=== PATIENT | female | born 1955 | race Caucasian/White ===

== ENCOUNTER 2017-04-19 15:18 | Inpatient (IN) | payer SELFPAY ==
[2017-04-19] MEDS ORDERED: IPRATROPIUM/ALBUTEROL SULFATE 3 ML AMPUL.NEB NEB ONE ×2 (15:33→16:24)
--- NOTE | 2017-04-19 15:40 | ED Physician Documentation ---
Dyspnea - HISTORIAN Historian: patient - HPI Chief Complaint: Dyspnea Additional Information: Danni states that she had a respiratory illness, fever/chill, achy all over. Started feel better 2 days ago. This AM developed a cough fo yellow phlegm, no blood. Feels that she might be running a fever again. Lung aches, no chest pain. Has had some nausea. Has end stage COPD. Is asmanex, combivent, Proair, nebulizer, is not on oxygen at home. Not smoking but is around second hand smoke. Severity: moderate - ROS CONST: weakness - PAST HX Lung Disease: COPD Cardiac Disease: other (chronic tachycardia) PE Risk Factors: none Surgeries/Procedures: other (breast lump removed) Allergies/Adverse Reactions: Allergies Allergy/AdvReac Type Severity Reaction Status Date / Time No Known Allergies Allergy Verified 04/19/17 16:17 Home Medications: Ambulatory Orders Medication Instructions Recorded Albuterol Sulfate [ProAir 1 puff IN DAILY 04/19/17 RespiClick] Azithromycin [Zithromax] 250 mg PO DIRECTED #6 tablet 04/19/17 Ipratropium [place] [Ipratropium 1 puff IN Q6 04/19/17 [place]] Ipratropium/Albuterol Sulfate 3 ml IN Q6 04/19/17 [Duoneb] Mometasone Furoate [Asmanex] 1 puff IN DAILY 04/19/17 Prednisone 30 mg PO D #9 tablet 04/19/17 - SOCIAL HX Smoking History: non-smoker, quit greater than 1 year Alcohol Use: none Drug Use: none - FAMILY HX Family History: no significant history - VITAL SIGNS Vital Signs: Vital Signs Temp Pulse Resp BP Pulse Ox 112/68 07/27/13 21:54 - REVIEWED ASSESSMENTS Nursing Assessment Reviewed: Yes Vitals Reviewed: Yes Progress - Progress Progress: 16:14 Patient states that her breathing seems improved, still wheezing some but can move air some better. 17:36 Took patient off oxygen and she desat down to 85%. ED Results Lab/Radiology - Radiology Radiology Impressions: Examination: PA and lateral chest. History: Evaluate lung park. Comparison exam: None provided Findings: PA lateral chest demonstrate a normal cardiac and mediastinal silhouette. Lungs hyperinflated with flattening of the diaphragms. Vascular calcifications involving the aortic arch. No focal infiltrate. No blunting of the costophrenic margins. Osseous structures are appropriate for age. Impression: Hyperinflated lungs. No acute appearing pulmonary process. - Orders Orders: ED Orders Category Date Time Status Ipratropium/Albuterol Sulfate [Duoneb] Med 04/19/17 15:33 Once 3 ml NEB NOW ONE Dyspnea Physical Exam - EXAM General Appearance: alert, moderate distress EENT: eye inspection normal, ENT inspection normal, pharynx normal, no signs of dehydration Neck: nml inspection. No: meningismus, lymphadenopathy Respiratory: speaks full sentences, respiratory distress (mild to moderate), prolonged expirations (mild), wheezes (bilateral expiratory), rales (few on the right side), no pleuritic chest pain. No: accessory muscle use, chest wall tenderness CVS: reg. rate & rhythm, no murmur, no gallop, pulses full, pulses equal Abdomen: non-tender, no organomegaly, no distention, no ascites Skin: color nml, no rash Extremities: non-tender, normal range of motion. No: edema, tenderness Neuro/Psych: oriented x3, mood/affect nml Discharge Clincal Impression: Acute bronchitis with COPD, Sinus tachycardia Prescriptions: Azithromycin [Zithromax] 250 mg PO DIRECTED #6 tablet Prednisone 30 mg PO D #9 tablet Referrals: Primary Doctor,No [Primary Care Provider] - 2 Days Additional Instructions: Drink a lot of fluids. Continue taking your nebulized treatments or Proair every four hours until symptoms improve. Take prednisone as directed. If your symptoms get worse to return to the ED or see your primary care provider. Condition: Stable Disposition: 01 HOME, SELF-CARE Decision to Admit: NO Date of Decison to Admit: 04/19/17 Decision Time: 17:07
[2017-04-19] MEDS: 0.9 % SODIUM CHLORIDE 1,000 ML IV SCH ×2 (16:00→20:00)
[2017-04-19] MEDS ORDERED: 0.9 % SODIUM CHLORIDE 1,000 ML IV ONE ×2 (16:08→19:54)
[2017-04-19 16:11] LABS: MEAN CORPUSCULAR HEMOGLOBIN 32.5 pg (28.0-34.0); MEAN CORPUSCULAR VOLUME 95.8 fl (80.0-100.0)
[2017-04-19 16:20] LABS: eGFR (African) > 60; eGFR (Non-African) > 60
[2017-04-19] MEDS ORDERED: methylPREDNISolone SOD SUCC 125 MG/2 ML VIAL ONE (16:23)
[2017-04-19] MEDS ORDERED: methylPREDNISolone SOD SUCC 125 MG/2 ML VIAL IVP ONE (16:24)
[2017-04-19 16:45] LABS: EOSINOPHILS % 2 % (0-7); MONOCYTES % 7 % (0-11); SEGMENTED NEUTROPHILS % 82 % (39-79)
[2017-04-19] MEDS ORDERED: ONDANSETRON HCL/PF 4 MG/ 2ML VIAL IVP ONE (16:50)
--- NOTE | 2017-04-19 16:52 | Diagnostic Imaging Report ---
[facility] [address] [facility].[address] [id number] Report Submission Date: Apr 19, 2017 4:31:07 PM AUTHORIZATION SPECIALIST Patient Study Name: JANETTE MOORE Date: Apr 19, 2017 3:59:14 PM AUTHORIZATION SPECIALIST Modality Type: CR Gender: M Description: CHEST : 59 Institution: [facility] Physician: CONNIE ROLAND Examination: PA and lateral chest. History: Evaluate lung park. Comparison exam: None provided Findings: PA lateral chest demonstrate a normal cardiac and mediastinal silhouette. Lungs hyperinflated with flattening of the diaphragms. Vascular calcifications involving the aortic arch. No focal infiltrate. No blunting of the costophrenic margins. Osseous structures are appropriate for age. Impression: Hyperinflated lungs. No acute appearing pulmonary process. Electronically signed on Apr 19, 2017 4:31:07 PM AUTHORIZATION SPECIALIST by: Durga MENON
[2017-04-19] MEDS ORDERED: ONDANSETRON HCL/PF 4 MG/ 2ML VIAL IVP PRN (19:29)
[2017-04-19 19:52] VITALS: BMI 23.0
[2017-04-19] MEDS ORDERED: ENOXAPARIN SODIUM 30 MG/0.3 ML DISP.SYRIN SQ SCH (20:00)
[2017-04-19] MEDS: IPRATROPIUM/ALBUTEROL SULFATE 3 ML AMPUL.NEB NEB SCH (21:00)
[2017-04-20] MEDS: IPRATROPIUM/ALBUTEROL SULFATE 3 ML AMPUL.NEB NEB SCH ×4 (01:34→12:57)
[2017-04-20] MEDS ORDERED: SALINE FLUSH 10 ML DISP.SYRIN IVF ONE ×3 (03:42→09:48)
[2017-04-20] MEDS ORDERED: 0.9 % SODIUM CHLORIDE 1,000 ML IV ONE (04:24)
[2017-04-20] MEDS: 0.9 % SODIUM CHLORIDE 1,000 ML IV SCH (04:30)
[2017-04-20 08:17] LABS: eGFR (African) > 60; eGFR (Non-African) > 60
--- NOTE | 2017-04-20 08:49 | History and Physical Report ---
History of Present Illnes - History of Present Illness Reason for Visit: dyspnea History of Present Illness: Kristin is a 61yo woman with a history of COPD. She has had increasing shortness of breath for the last several weeks. In the last few months her insurance changed and her new insurance would not pay for Incruze, which seemed to work for her. She tried Symbicort, but it made her lips swell. She was then started on Combivent, but it doesn't seem to help. She has also had tachycardia for 2-3 months now, which she thinks may have started shortly after she began using the Combivent. She was actually transferred to the [place] ER from her PCP office because of the tachycardia, but per her report no cause was determined. Since the middle of March her breathing has been worse than normal. She got to the point that she could hardly stand up without getting short of breath. Last week she had acute upper respiratory symptoms, but that had gotten better. She had gone several days without any medication at all due to insurance issues and she finally got her inhalers again 2 days ago. Yesterday afternoon she became confused, weak, dizzy, and lethargic to the point that she doesn't remember more than an hour of the day. She decided at that time to present to the ER where she intially had O2 saturation of 81%. It improved briefly after being on oxygen, but then dropped to 85% after oxygen was removed. She has had 2 doses of Solumedrol, breathing treatments, and been on 2 liters of oxygen overnight. She is feeling much better this morning. She doesn't feel short of breath and her cough is better. She denies pain. - Past Medical History Cardiac: Other (unspecified mitral valve problem, tachycardia). denies: CHF Pulmonary: COPD - Past Surgical History Past Surgical History: Other (breast lump removed) - Past Family History Mother Family History: Other (denies significant family medical history) Father Family History: Other (denies significant family medical history) - Past Social History Smoke: Quit (more than a year ago, still around second hand smoke) Alcohol: None Lives: With Family (3yo grandchild) - Health Maintenance Health Maintenance: denies: Influenza Vaccine, Pneumococcal Vaccine Influenza Vaccine: No Pneumonia Vaccine: Yes Resuscitation Status: Resusciation Status Resuscitation Status Full Code Review of Systems - Review of Systems Constitutional: Fever, Malaise, Other (dizziness) Eyes: negative: pain, vision change ENT: negative: Ear Pain, Throat Pain Respiratory: Cough, Dry, Shortness of Breath, SOB with Excertion. negative: Pleuritic Pain Cardiovascular: negative: Chest Pain, Edema Gastrointestinal: negative: Nausea, Vomiting Genitourinary: negative: Dysuria, Frequency Musculoskeletal: negative: Neck Pain, Leg Pain Skin: negative: Rash, Lesions Neurological: Weakness, Confusion. negative: Change in Speech - Medications/Allergies Allergies/Adverse Reactions: Allergies Allergy/AdvReac Type Severity Reaction Status Date / Time No Known Allergies Allergy Verified 04/19/17 16:17 Home Medications: Home Medications Albuterol Sulfate [ProAir RespiClick] 1 puff IN DAILY 04/19/17 Ipratropium [place] [Ipratropium [place]] 1 puff IN Q6 04/19/17 Ipratropium/Albuterol Sulfate [Duoneb] 3 ml IN Q6 04/19/17 Mometasone Furoate [Asmanex] 1 puff IN DAILY 04/19/17 Current Inpatient Medications: Current Inpatient Medications Albuterol/Ipratropium (Duoneb) 3 ml NEB Q4 [facility] Last Admin: 04/20/17 05:44 Dose: 3 ml Enoxaparin Sodium (Lovenox) 30 mg SQ QD [facility] Stop: 05/02/17 20:01 Last Admin: 04/19/17 20:00 Dose: 30 mg Sodium Chloride (Normal Saline) 1,000 mls @ 125 mls/hr IV .Q1H [facility] Last Admin: 04/20/17 04:30 Dose: 125 mls/hr Methylprednisolone Sodium Succinate (Solu-Medrol) 80 mg IVP Q12 [facility] Ondansetron HCl (Zofran 4 Mg/2 Ml) 4 mg IVP Q6 PRN PRN Reason: Nausea / Vomiting Exam - Exam Vital Signs: Vital Signs (72 hours) 04/19/17 04/19/17 04/19/17 19:16 21:31 21:42 Temperature 98.8 F 98.7 F Pulse Rate [ 114 H 114 H Pulse ox] Respiratory 20 18 18 Rate Blood Pressure 102/68 121/67 [Left Arm] O2 Sat by Pulse 94 98 Oximetry 04/20/17 04/20/17 02:00 05:24 Temperature 98.7 F 97.1 F L Pulse Rate [ 98 H Pulse ox] Respiratory 18 18 Rate Blood Pressure 118/62 105/62 [Left Arm] O2 Sat by Pulse 98 98 Oximetry General: Alert, Oriented to Person, Oriented to Place, Oriented to Time, No acute distress HEENT: Atraumatic, PERRLA, EOMI Neck: Normal Range of Motion. No: Rigidity Lungs: Clear to auscultation, Speaks full Sentences, Prolonged Expiration Cardiovascular: Tachycardia, Other (no peripheral edema). No: Gallops, Rubs Abdomen: Soft, No tenderness Integumentary: Normal, [place], Warm, Dry Extremities: No cyanosis, No edema, No tenderness/swelling Neurological: Normal speech, Normal tone, Cranial nerves 3-12 NL Psych/Mental Status: Mood NL - Laboratory Results Laboratory Results: Laboratory Results 04/20/17 06:40 Sodium 137 Potassium 3.7 Chloride 104 Carbon Dioxide 28 BUN 9 Creatinine 0.50 L Estimated Creat Clear 132 Est GFR ( Amer) > 60 Est GFR (Non-Af Amer) > 60 Glucose 158 H Calcium 8.9 Total Bilirubin < 0.1 L AST 13 L ALT 43 Alkaline Phosphatase 58 Total Protein 6.1 L Albumin 3.2 L Assessment/Plan - Assessment/Plan (1) Acute bronchitis with COPD Status: Acute Current Visit: Yes Assessment: Pt with history of COPD presented with O2 saturation of 81% and cough. Chest Xray clear for acute pulmonary process. Plan: Continue breathing treatments, oxygen, and prednisone. Will do a trial without oxygen today, if sats remain ok can go home today. (2) Sinus tachycardia Status: Acute Current Visit: Yes Assessment: Stable, no acute distress Plan: will monitor VTE Assessment - RISK FACTOR SCORE VTE RISK FACTOR SCORES: AGE 40-60 YEARS, ACUTE RESPIRATORY FAILURE/SEVERE COPD - RISK VTE MODERATE RISK: SCORE OF 2 (RISK PROXIMAL DVT 2-4%) PROPHYAXIS NEEDED
[2017-04-20] MEDS: methylPREDNISolone SOD SUCC 40 MG/ML VIAL IVP SCH ×2 (10:06→10:20)
[2017-04-20 17:19] VITALS: BP 101/64
--- NOTE | 2017-04-22 08:30 | Discharge Summary ---
Discharge Summary - Discharge Sumary History of Present Illness: Ms. Kwon is a 61yo woman with a history of COPD and some heart problems, including tachycardia over the last few months. Due insurance changes recently she has had some changes in medications and then went several days without any breathing medication. She presented to [facility] ER with complaints of dyspnea to the point that she was confused and dizzy. She was found to have O2 saturation of 81% on arrival with clear lung sounds and chest Xray negative for acute changes. After initial treatment with oxygen her saturation levels went into the 90s, but then dropped back to 85% after the oxygen was removed. She was admitted for treatment of COPD exacerbation. Condition at Discharge: Stable Home Medications: Ambulatory Orders Medication Instructions Recorded Albuterol Sulfate [ProAir 1 puff IN DAILY 04/19/17 RespiClick] Ipratropium [place] 1 puff IN Q6 04/19/17 Mometasone Furoate [Asmanex] 1 puff IN DAILY 04/19/17 Prednisone 30 mg PO D #9 tablet 04/19/17 Ipratropium/Albuterol Sulfate 1 vial IN Q6 #20 ampul.neb 04/20/17 [Duoneb] Ondansetron HCl/Pf [Zofran] 4 mg IVP Q6 PRN vial 04/20/17 Consultations this Visit: None Procedures this Visit: None Allergies/Adverse Reactions: Allergies Allergy/AdvReac Type Severity Reaction Status Date / Time No Known Allergies Allergy Verified 04/19/17 16:17 Discharge Summary: Discharge to home Activity as tolerated Diet regular Follow up with PCP within 48 hours Continue home medications and new medications: Duoneb and Prednisone Hospital Course: The patient remained stable during her hospital stay. Upon presentation she had dyspnea with oxygen saturation of 81%. She received Solumedrol, Duoneb treatments, and Oxygen by nasal canula and her oxygen remained in the 90s after that. Clinically her breathing was better. After trial without oxygen for an hour her oxygen saturation was measured between 92 and 95%. She felt ready to go home.
== END 2017-04-20 17:10 | disposition home or self-care (01) | DRG 192 ==
LOC: ED 15:18 → SOUTH 18:44
PROVIDERS: ADMIT Physician Assistant; ATTEND Physician Assistant
DX: J44.1 Chronic obstructive pulmonary disease with (acute) exacerbation (principal); R00.0 Tachycardia, unspecified
CPT/HCPCS: 36415; 71020; 80053; 85025; 85379; J1650; J2405; J2920; J2930; J7030; 99222; 99238; 99283; J1030; S1016